=== PATIENT | male | born 1995 | race Caucasian/White ===

== ENCOUNTER 2023-06-16 17:25 | Emergency (ER) | payer OTHER ==
[~2023-06-16] VITALS: Ht 167 cm; Wt 67.0 kg
[2023-06-16 18:05] LABS: BASOPHILS # (AUTO) 0.1 10^3/uL (0.0-0.1); BASOPHILS % (AUTO) 1 % (0-10); EOSINOPHILS # (AUTO) 0.1 10^3/uL (0.0-0.3); EOSINOPHILS % (AUTO) 1 % (0-10); HEMATOCRIT 48 % (40-54); HEMOGLOBIN 16.8 g/dL (13.3-17.7); LYMPHOCYTES % (AUTO) 25 % (12-44); MEAN CORPUSCULAR HEMOGLOBIN 32 pg (25-34); MEAN CORPUSCULAR HGB CONC 35 g/dL (32-36); MEAN CORPUSCULAR VOLUME 91 fL (80-99); MEAN PLATELET VOLUME 9.1 fL (9.0-12.2); MONOCYTES # (AUTO) 1.1 10^3/uL (0.0-1.0); MONOCYTES % (AUTO) 9 % (0-12); NEUTROPHILS # (AUTO) 7.5 10^3/uL (1.8-7.8); NEUTROPHILS % (AUTO) 64 % (42-75); PLATELET COUNT 279 10^3/uL (130-400); WHITE BLOOD COUNT 11.8 10^3/uL (4.3-11.0)
--- NOTE | 2023-06-16 18:25 | ED Abdominal Pain ---
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 pt reports he also feels tremors. pt is a daily drinker and reports he only had 1-2 shots and a beer. Source of Information: Patient Exam Limitations: No Limitations History of Present Illness Date Seen by Provider: Jun 16, 2023 Time Seen by Provider: 17:56 Initial Comments 28-year-old male presents to the ER via EMS with complaint of abdominal pain. He points to his mid abdomen when describing the pain. He states that he has had this pain for a while, states that it has gradually gotten worse today. He reports at times that he feels hot, but states that his hands are cold. Reports 1 episode of vomiting. Denies nausea at this time. Denies dysuria. He reports feeling like there is a "bubble in my stomach." States that at times he feels like he needs to belch. He reports that he has had liquid stool for months, reports that it is mucousy, and black in color intermittently. He states that if he eats a lot, then his stool is not as loose. States his last bowel movement was this afternoon. Patient drinks alcohol daily. States that he drinks a half a case of beer every day, and then sometimes he drinks whiskey also. States that today he only had 1-2 shots and 1 beer. Denies any past surgical history. Allergies and Home Medications Allergies Coded Allergies: No Known Drug Allergies (Unverified , 06/16/23) Patient Home Medication List Home Medication List Reviewed: Yes Review of Systems Review of Systems Constitutional: see HPI Past Mmhydtz-Gqcgei-[id number] Hx Patient Social History Tobacco Use?: Yes Tobacco type used: Cigarettes Substance use?: No Alcohol Use?: Yes Alcohol Frequency: Daily Physical Exam Vital Signs Vital Signs - First Documented 06/16/23 06/16/23 17:39 20:01 Temp 36.6 Pulse 94 Resp 16 B/P (MAP) 152/103 (119) Pulse Ox 99 O2 Delivery Room Air Capillary Refill : Less Than 3 Seconds Height/Weight/BMI Height: '" Weight: lbs. oz. kg; 24.00 BMI Method: General Appearance: WD/WN, mild distress Neck: supple, normal inspection Respiratory: lungs clear, normal breath sounds, no respiratory distress, no accessory muscle use Cardiovascular: regular rate, rhythm Gastrointestinal: normal bowel sounds, soft; No guarding; tenderness (Generalized tenderness) Extremities: normal range of motion, normal inspection Neurologic/Psychiatric: alert, normal mood/affect Skin: normal color, warm/dry Progress/Results/Core Measures Results/Orders Lab Results Laboratory Tests Test 06/16/23 17:40 06/16/23 19:10 Range/Units White Blood Count 11.8 H 4.3-11.0 10^3/uL Red Blood Count 5.22 4.30-5.52 10^6/uL Hemoglobin 16.8 13.3-17.7 g/dL Hematocrit 48 40-54 % Mean Corpuscular Volume 91 80-99 fL Mean Corpuscular Hemoglobin 32 25-34 pg Mean Corpuscular Hemoglobin Concent 35 32-36 g/dL Red Cell Distribution Width 12.3 10.0-14.5 % Platelet Count 279 130-400 10^3/uL Mean Platelet Volume 9.1 9.0-12.2 fL Immature Granulocyte % (Auto) 1 % Neutrophils (%) (Auto) 64 42-75 % Lymphocytes (%) (Auto) 25 12-44 % Monocytes (%) (Auto) 9 0-12 % Eosinophils (%) (Auto) 1 0-10 % Basophils (%) (Auto) 1 0-10 % Neutrophils # (Auto) 7.5 1.8-7.8 10^3/uL Lymphocytes # (Auto) 3.0 1.0-4.0 10^3/uL Monocytes # (Auto) 1.1 H 0.0-1.0 10^3/uL Eosinophils # (Auto) 0.1 0.0-0.3 10^3/uL Basophils # (Auto) 0.1 0.0-0.1 10^3/uL Immature Granulocyte # (Auto) 0.1 0.0-0.1 10^3/uL Sodium Level 139 135-145 MMOL/L Potassium Level 3.8 3.6-5.0 MMOL/L Chloride Level 102 98-107 MMOL/L Carbon Dioxide Level 22 21-32 MMOL/L Anion Gap 15 H 5-14 MMOL/L Blood Urea Nitrogen 5 L 7-18 MG/DL Creatinine 0.91 0.60-1.30 MG/DL Estimat Glomerular Filtration Rate 116 BUN/Creatinine Ratio 5 Glucose Level 123 H 70-105 MG/DL Calcium Level 9.5 8.5-10.1 MG/DL Corrected Calcium 8.5-10.1 MG/DL Total Bilirubin 0.4 0.1-1.0 MG/DL Aspartate Amino Transf (AST/SGOT) 40 H 5-34 U/L Alanine Aminotransferase (ALT/SGPT) 40 0-55 U/L Alkaline Phosphatase 78 40-136 U/L Total Protein 8.3 H 6.4-8.2 GM/DL Albumin 5.1 H 3.2-4.5 GM/DL Lipase 17 8-78 U/L Serum Alcohol 42 H <10 MG/DL Urine Color YELLOW Urine Clarity CLEAR Urine pH 7.0 5-9 Urine Specific [place] 1.020 1.016-1.022 Urine Protein NEGATIVE NEGATIVE Urine Glucose (UA) NEGATIVE NEGATIVE Urine Ketones NEGATIVE NEGATIVE Urine Nitrite NEGATIVE NEGATIVE Urine Bilirubin NEGATIVE NEGATIVE Urine Urobilinogen 0.2 < = 1.0 MG/DL Urine Leukocyte Esterase NEGATIVE NEGATIVE Urine RBC (Auto) NEGATIVE NEGATIVE Urine RBC NONE /HPF Urine WBC NONE /HPF Urine Squamous Epithelial Cells NONE /HPF Urine Crystals NONE /LPF Urine Bacteria TRACE /HPF Urine Casts NONE /LPF Urine Mucus NEGATIVE /LPF Urine Culture Indicated NO My Orders Orders - TREMAINE PICKETT APRN Comprehensive Metabolic Panel (06/16/23 17:56) Lipase (06/16/23 17:56) Ua Culture If Indicated (06/16/23 17:56) Ed Iv/Invasive Line Start (06/16/23 17:56) Cbc And Automated Diff (06/16/23 17:56) Alcohol (06/16/23 18:18) Ns Iv 1000 Ml (Ns Iv 1000 Ml) (06/16/23 18:30) Fentanyl Injection (Fentanyl Injection (06/16/23 18:30) Ondansetron Injection (Ondansetron Inj (06/16/23 18:30) Ct Abdomen/Pelvis W (06/16/23 19:05) Medications Given in ED Current Medications Medications Dose Ordered Sig/Clem Route Start Time Stop Time Status Last Admin Dose Admin Fentanyl Citrate 50 mcg ONCE ONCE IVP 06/16/23 18:30 06/16/23 18:31 DC 06/16/23 18:25 50 MCG Iohexol 100 ml ONCE ONCE IV 06/16/23 19:15 06/16/23 19:20 DC 06/16/23 19:33 80 ML Ondansetron HCl 4 mg ONCE ONCE IVP 06/16/23 18:30 06/16/23 18:31 DC 06/16/23 18:25 4 MG Sodium Chloride 100 ml ONCE ONCE IV 06/16/23 19:15 06/16/23 19:20 DC 06/16/23 19:33 100 ML Vital Signs/I&O 06/16/23 06/16/23 17:39 20:01 Temp 36.6 Pulse 94 72 Resp 16 B/P (MAP) 152/103 (119) 131/90 Pulse Ox 99 98 O2 Delivery Room Air Blood Pressure Mean: 119 Progress Progress Note : Progress Note Patient seen and evaluated, resting in bed, mild distress. Based on exam and symptoms, work-up initiated including CBC, CMP, lipase, UA. IV fluids, fentanyl, Zofran ordered. [address] reviewed. CBC shows mildly elevated WBC 11.8. CMP shows slightly elevated anion gap 15, glucose 123, AST slightly elevated 40. Total protein slightly elevated 8.3. Albumin slightly elevated 5.1. Lipase normal. Alcohol level 42. Urinalysis negative for infection. Due to patient reporting intermittent black-colored stools, I wanted to perform a rectal exam to perform a fecal occult study. Patient refused the test. Will discharge with outpatient stool studies including fecal occult, parasites, and C. difficile due to chronic diarrhea. Will have patient follow-up with [facility]. Patient instructed to try Tums or antacids [id number] for pain and to quit drinking. Patient stable for discharge. Discharge instructions and return precautions provided. Departure Impression Primary Impression: Abdominal pain Additional Impression: Stool color black Disposition: HOME, SELF-CARE Condition: Stable Departure-Patient Inst. Decision time for Depature: 19:54 Referrals: [facility] Patient Instructions: Severe Abdominal Pain, Adult (DC) Add. Discharge Instructions: Complete the outpatient stool studies. Results will be sent to the [facility]. Follow-up with the [facility] regarding the results of the stool study and to establish a primary care provider. You should quit drinking alcohol. You may try Tums or other antacids [id number]. Return for any new, concerning, or worsening symptoms. All discharge instructions reviewed with patient and/or family. Voiced understanding. Work/School Note: Work Release Form Date Seen in the Emergency Department: Jun 16, 2023 Return to Work: Jun 18, 2023 Restrictions: No Restrictions TREMAINE PICKETT APRN Jun 16, 2023 18:25
[2023-06-16 18:28] LABS: ALBUMIN 5.1 GM/DL (3.2-4.5); CHLORIDE 102 MMOL/L (98-107); POTASSIUM 3.8 MMOL/L (3.6-5.0); SODIUM 139 MMOL/L (135-145)
[2023-06-16 18:29] LABS: CALCIUM 9.5 MG/DL (8.5-10.1)
[2023-06-16 18:30] LABS: GLUCOSE 123 MG/DL (70-105); TOTAL PROTEIN 8.3 GM/DL (6.4-8.2)
[2023-06-16] MEDS ORDERED: fentaNYL INJECTION 100 MCG/2 ML VIAL IVP ONE (18:30)
[2023-06-16] MEDS ORDERED: ONDANSETRON INJECTION 4 MG/2 ML (SDV) IVP ONE (18:30)
[2023-06-16] MEDS ORDERED: NS IV 1000 ML 1,000 ML IV SCH (18:30)
[2023-06-16 18:31] LABS: CARBON DIOXIDE 22 MMOL/L (21-32)
[2023-06-16 18:32] LABS: BILIRUBIN,TOTAL 0.4 MG/DL (0.1-1.0)
[2023-06-16 18:34] LABS: ALKALINE PHOSPHATASE 78 U/L (40-136); CREATININE SERUM 0.91 MG/DL (0.60-1.30); GFR ESTIMATED 116
[2023-06-16 18:35] LABS: BUN/CREATININE RATIO 5
[2023-06-16 18:37] LABS: ALANINE AMINOTRANSFERASE 40 U/L (0-55); LIPASE 17 U/L (8-78)
[2023-06-16] MEDS ORDERED: HOLD METFORMIN - RECEIVED CONTRAST 20 ML VIAL IV SCH (19:15)
[2023-06-16] MEDS ORDERED: IOHEXOL 350 MG/ML 100 ML (OMNIPAQUE 350) VIAL IV ONE (19:15)
[2023-06-16] MEDS ORDERED: NS 100 ML (IVPB) BAG IV ONE (19:15)
--- NOTE | 2023-06-16 19:38 | Diagnostic Imaging Report ---
INDICATION: Upper abdominal pain in the midline x3 hours. TECHNIQUE: Multiple contiguous axial images were obtained through the abdomen and pelvis after administration of intravenous contrast. Auto Exposure Controls were utilized during the CT exam to meet ALARA standards for radiation dose reduction. All CT scans use one or more of the following dose optimizing techniques: automated exposure control, MA and/or KvP adjustment based on patient size and exam type or iterative reconstruction. There is no previous study for comparison. The visualized portions of the lung bases are clear. There were no pleural fluid collections. There is no free intraperitoneal air. The liver shows no focal lesion. Gallbladder appears normal. The spleen shows a few calcified granulomas otherwise normal appearance. The adrenals and pancreas are normal. The kidneys bilaterally are unremarkable. There is no retroperitoneal mass or adenopathy. There is no ascites or abnormal fluid collection. Visualized loops of bowel appear unremarkable. There is no pelvic mass or free fluid. IMPRESSION: No acute process seen in the abdomen or pelvis. Dictated by: Dictated on workstation # [id number]
[2023-06-16 19:44] LABS: CLARITY,URINE CLEAR; COLOR,URINE YELLOW
[2023-06-16 19:45] LABS: BACTERIA,URINE TRACE /HPF; BILIRUBIN,URINE NEGATIVE (NEGATIVE); GLUCOSE, URINE (UA) NEGATIVE (NEGATIVE); KETONES,URINE NEGATIVE (NEGATIVE); LEUKOCYTE ESTERASE ,URINE NEGATIVE (NEGATIVE); NITRITE,URINE NEGATIVE (NEGATIVE); PROTEIN,URINE NEGATIVE (NEGATIVE)
[2023-06-16 20:01] VITALS: BP 131/90
== END 2023-06-16 20:11 | disposition home or self-care (01) ==
LOC: EDUNIT# 17:25 → ER 17:32
DX: K92.1 Melena (principal); F17.210 Nicotine dependence, cigarettes, uncomplicated
CPT/HCPCS: 74177; 80053; 81000; 83690; 85025; 99284; G0480; 36415; 80320